=== PATIENT | female | born 1965 | race Caucasian/White ===

== ENCOUNTER 2023-07-18 05:50 | Day surgery (SDC) | payer BC ==
[2023-07-09 15:16] VITALS: BP 146/90
[2023-07-18] VITALS (8 sets, daily range): BP systolic 96–142; BP diastolic 59–94
[~2023-07-18] VITALS: Ht 172.7 cm; Wt 91.8 kg
--- NOTE | ~2023-07-18 | OR ---
[facility] [address], [place] [address] Draft DATE OF OPERATION: 07/18/2023 SURGEON: Abbi Rod MD SIENE MAKER: Gus Leal DO PREOPERATIVE DIAGNOSIS: Uterovaginal prolapse, abdominal adhesions, cystocele and rectocele, and stress urinary incontinence. PROCEDURE: Total laparoscopic hysterectomy, bilateral salpingectomy, lysis of adhesions, cystocele repair, sling procedure, cystoscopy, rectocele repair. ANESTHESIA: General ET. ESTIMATED BLOOD LOSS: 150 mL, combined. DRAINS: Kelsey catheter. INDICATIONS AND FINDINGS: The patient is a 57-year-old female who has been having ongoing issues with uterovaginal prolapse. She now desired definitive treatment. She unfortunately has also had a right colectomy, which was done open because of her perforation during colonoscopy. She has also had a midline hernia repair. She had a grade 2 cystocele and a grade 2-3 rectocele. At the time of surgery, she had adhesions across the right side of the abdomen consistent with the prior colectomy. The pelvis otherwise appeared clear. DESCRIPTION OF PROCEDURE: The patient was prepped and draped in the dorsal lithotomy position. A weighted speculum was placed. The anterior lip of the cervix was visualized and grasped with a single-tooth tenaculum. The cavity was sounded and the endocervical canal dilated and the VCare cannula inserted and the balloon inflated at the fundus. The tenaculum and speculum removed. The cup was fitted over the cervix and a locking cap was fitted into place. Attention was directed above. The infraumbilical area was injected with 0.5% Marcaine plain. An incision was made with a knife, and each layer was serially elevated PATIENT NAME: ANUM JO OPERATIVE REPORT DATE OF : 69 REPORT #: [id number] PHYSICIAN: ABBI ROD MD PCP: YANETH GUZMÁN MD REPORT IS CONFIDENTIAL AND NOT TO BE RELEASED WITHOUT AUTHORIZATION [facility] [address], [place] [address] Draft incised until the fascia was opened and identified. Stay sutures of 0 Vicryl were placed. The peritoneum was opened bluntly and the Faisal cannula was placed and the balloon inflated. Placement of the scope confirmed proper positioning. CO2 was then introduced in the abdomen. The abdomen was evaluated and the pelvis appeared clear other than the adhesions on the right anterior abdominal wall. The secondary ports were then placed. The left-sided port was a 5 mm port, the right-sided port was a Veress needle followed by the expanding port. Each of these areas was transilluminated, injected with the Marcaine, incision made with a knife and the trocars placed under direct vision. After placement of the left-sided scope, the LigaSure [place] device was used to divide the adhesions along the anterior abdominal wall of the patient's right allowing for more freedom of movement visualization. Following this, the right-sided port was placed. At this time, the patient's left tube was excised from the fimbriated end to the cornu by serially coagulated and dividing along the mesosalpinx. The patient's right utero-ovarian ligament was then serially coagulated and divided as well. The patient's right tube was then removed in the same manner by serially coagulating, dividing the mesosalpinx and dividing at the cornu. The left utero-ovarian ligament was then serially coagulated and divided as well. Following this, the left round ligament was serially coagulated, divided, and the anterior leaf of the broad ligament incised allowing for creation of a partial bladder flap. The peritoneum was taken down posteriorly as well. Uterine vessels were skeletonized and were coagulated multiple times and divided. Attention was directed to the patient's right side and the round ligament was serially coagulated and divided. The anterior leaf of the peritoneum was then dissected down and this completed the bladder flap anteriorly. The peritoneum was taken down posteriorly as well. The uterine vessels were skeletonized and coagulated multiple times and divided. Further dissection was done both posteriorly and anteriorly and the cup could then be seen and felt. Following this, the APGR Green device was used to serially divide the specimen from the vaginal cuff. The specimen was retrieved vaginally and the vaginal canal packed with a glove with a wet lap allowing the pneumoperitoneum to reaccumulate. The abdomen was then copiously irrigated, inspected and good hemostasis was noted. The vaginal cuff was closed with the Endo Stitch, taking care to incorporate the vaginal mucosa both anteriorly and posteriorly. This was begun at the patient's right uterosacral ligament and carried to the patient's left uterosacral ligament and back to the center. Following this, the instruments were removed from the abdomen after allowing as much CO2 as possible to escape. The fascial incision of the umbilicus was identified and closed with a running suture of 0 Vicryl. The stay sutures were tied across as well. The skin incisions were closed with subcuticular sutures of 3-0 Vicryl Rapide. Attention was directed down below and the vaginal pack was removed. The anterior vaginal wall was then grasped in the midline with Allis clamps and was incised from the vaginal cuff to the midurethral area. The vaginal mucosa was from the underlying tissue with a combination of blunt and sharp dissection. This was carried out pretty far laterally and behind the pubic rami superiorly at the level of the mid urethra. Following this, the remaining pubovesical PATIENT NAME: ANUM JO OPERATIVE REPORT DATE OF : 69 REPORT #: [id number] PHYSICIAN: ABBI ROD MD PCP: YANETH GUZMÁN MD REPORT IS CONFIDENTIAL AND NOT TO BE RELEASED WITHOUT AUTHORIZATION [facility] [address], [place] [address] Draft fascia was reapproximated with interrupted sutures of 2-0 Vicryl. The obturator notches were identified and incision made over these. The trocars were then inserted for the obturator sling. These were placed at the lowest most medial portion of the obturator notch and taken immediately behind the pubic bone and into the apex of the vaginal incision, taking care not to buttonhole. This was done bilaterally. At this point, cystoscopy was done with removal of the Kelsey. She had received IV fluorescein. The bladder was inspected using a 70-degree scope. There was no evidence of any incursion of the trocars on either side or any other bladder injury. Both of the ureteral orifices were identified and free spill of fluorescein stained urine was noted. The bladder was then drained and the Kelsey catheter replaced. The sling was then attached to the trocars and brought through the skin incisions on each side. The covering was removed by cutting the tab. Care was taken to keep appropriate tension in the midurethral area. The excess sling was trimmed at the skin. The excess vaginal mucosa was then trimmed significantly on each side. Bleeding points were controlled with cautery. There was some bleeding from the apices of the vagina, which could not be reached and FloSeal was placed in these areas on each side. The vaginal mucosa was then closed from the midurethral area down to the vaginal cuff with a running suture of 2-0 Vicryl. The posterior repair was then begun. A triangle of tissue was removed from the perineal body and the vaginal mucosa was then undermined, incised in the midline to the apex of the vagina. The vaginal mucosa was from the underlying tissue with a combination of blunt and sharp dissection. The muscles were reapproximated with interrupted sutures of 0 Vicryl. This reduced the rectocele significantly. A rectal examination was then done, which confirmed good reduction of the defect and no evidence of any sutures compromising the rectal lumen. The vaginal mucosa was then trimmed and the incision was closed from the apex of the vagina to the hymenal ring with a running suture of 2-0 Vicryl. The perineal body was rebuilt with interrupted sutures of 0 Vicryl. The posterior fourchette was recreated with a running suture of 2-0 Vicryl. The skin of the perineum was closed with a subcuticular suture of 3-0 Vicryl. The skin incisions for the sling were closed with interrupted sutures of 3-0 Vicryl. Inspection of the vaginal vault showed good length and caliber. There was no evidence of any ongoing bleeding. The vaginal canal was then packed with estrogen coated gauze using the entire lengths provided. All sponge and needle counts were correct. She tolerated the procedure well, taken to the recovery room in good condition. MD OPAL Earl/DAINA /[id number] PATIENT NAME: ANUM JO OPERATIVE REPORT DATE OF : 69 REPORT #: [id number] PHYSICIAN: ABBI ROD MD PCP: YANETH GUZMÁN MD REPORT IS CONFIDENTIAL AND NOT TO BE RELEASED WITHOUT AUTHORIZATION [facility] [address] [place] [address] Draft Copies: ~ PATIENT NAME: ANUM JO OPERATIVE REPORT DATE OF : 69 REPORT #: [id number] PHYSICIAN: ABBI ROD MD PCP: YANETH GUZMÁN MD REPORT IS CONFIDENTIAL AND NOT TO BE RELEASED WITHOUT AUTHORIZATION
[~2023-07-18 05:50] MED LIST: FLONASE ALLERG9.9 ML NAS; LACTATED RINGER'S 1,000 ML IV SCH; METOPROLOL SUCC25 MG PO; PANTOPRAZOLE SO20 MG PO; ZYRTEC10 MG PO
[2023-07-18] MEDS ORDERED: DEXAMETHASONE SOD PHOS 4 MG/ML VIAL ONE (06:57)
[2023-07-18] MEDS ORDERED: MAGNESIUM SULFATE 1 GM/2 ML VIAL ONE (06:57)
[2023-07-18] MEDS ORDERED: ROCURONIUM BROMIDE 50 MG/5 ML SYR ONE (06:57)
[2023-07-18] MEDS ORDERED: propofoL 200 MG/20 ML VIAL ONE (06:57)
[2023-07-18] MEDS ORDERED: KETOROLAC TROMETHAMINE 30 MG/ML VIAL ONE (06:57)
[2023-07-18] MEDS ORDERED: KETAMINE in NS 50 MG/5 ML SYR ONE (06:57)
[2023-07-18] MEDS ORDERED: ACETAMINOPHEN 1,000 MG/100 ML VIAL ONE (06:57)
[2023-07-18] MEDS ORDERED: ondansetron HCL 4 MG/2 ML VIAL ONE (06:57)
[2023-07-18] MEDS ORDERED: dexmedeTOMIDine HCl 200 MCG/2 ML VIAL ONE (06:57)
[2023-07-18] MEDS ORDERED: MIDAZOLAM HCL 2 MG/2 ML VIAL ONE (06:57)
[2023-07-18] MEDS ORDERED: HEParin SOD (PORCINE) 5,000 UNIT/0.5 ML SYR SUB-Q SCH ×2 (07:00→21:00)
[2023-07-18] MEDS ORDERED: METOCLOPRAMIDE HCL 10 MG/2 ML SDV IV SCH (07:00)
[2023-07-18] MEDS ORDERED: FAMOTIDINE 20 MG/ 2 ML VIAL IV SCH (07:00)
[2023-07-18] MEDS ORDERED: CEFAZOLIN SODIUM 2 GM/20 ML SYR IV SCH (07:00)
[2023-07-18] MEDS ORDERED: IBLOOD GLUCOSE TEST STRIP 1 EA TEST VI PRN ×2 (07:00→11:15)
[2023-07-18] MEDS ORDERED: LIDOCAINE HCL 1% 5 ML SDV INJ ONE (07:00)
[2023-07-18] MEDS ORDERED: LIDOCAINE HCL 1% 30 ML SDV ONE (07:05)
[2023-07-18] MEDS ORDERED: SUGAMMADEX SODIUM 200 MG/2 ML ML ONE (07:37)
[2023-07-18] MEDS ORDERED: FLUORESCEIN SODIUM 500 MG/5 ML ML ONE (07:37)
[2023-07-18] MEDS ORDERED: ePHEDrine sulfate 50 MG/ML AMP ONE (08:07)
[2023-07-18] MEDS ORDERED: SODIUM CHLORIDE 0.9% 20 ML IV ONE (08:08)
[2023-07-18] MEDS ORDERED: LACTATED RINGER'S 1,000 ML IV ONE ×2 (08:12→09:49)
[2023-07-18] MEDS ORDERED: LIDOCAINE HCL 2% 5 ML SDV ONE (09:14)
[2023-07-18] MEDS ORDERED: estradioL 0.01% 42.5 GM TUBE ONE (09:54)
[2023-07-18] MEDS ORDERED: BACITRACIN 0.9 GM 1 PKT PKT ONE (10:42)
[2023-07-18] MEDS ORDERED: MORPHINE SULFATE 10 MG/ML VIAL IV PRN (11:00)
[2023-07-18] MEDS ORDERED: ondansetron HCL 4 MG TAB PO PRN (11:00)
[2023-07-18] MEDS ORDERED: SIMETHICONE 125 MG TABLET CHEWABLE PO PRN (11:00)
[2023-07-18] MEDS ORDERED: METOCLOPRAMIDE HCL 10 MG/2 ML SDV IV PRN (11:00)
[2023-07-18] MEDS ORDERED: OXYCODONE HCL 5 MG TAB PO PRN (11:00)
[2023-07-18] MEDS ORDERED: LACTATED RINGER'S 1,000 ML IV SCH (11:00)
[2023-07-18] MEDS ORDERED: MAGNESIUM HYDROXIDE/AL HYDROX 30 ML CUP PO PRN (11:00)
[2023-07-18] MEDS ORDERED: ondansetron HCL 4 MG/2 ML VIAL IV PRN ×2 (11:00→11:15)
[2023-07-18] MEDS ORDERED: LIDOCAINE 2% VISCOUS 6 ML SYR TOP ONE (11:00)
[2023-07-18] MEDS ORDERED: NALOXONE HCL 0.4 MG SYR IV PRN ×2 (11:00→11:15)
[2023-07-18] MEDS ORDERED: PROCHLORPERAZINE EDISYLATE 10 MG/2 ML VIAL IV PRN (11:00)
[2023-07-18] MEDS ORDERED: FAMOTIDINE 20 MG TAB PO PRN (11:00)
[2023-07-18] MEDS ORDERED: droPERidol 5 MG/2 ML VIAL IV PRN (11:15)
[2023-07-18] MEDS ORDERED: HYDROmorphone HCL 1 MG/ML SYR IV PRN (11:15)
--- NOTE | 2023-07-18 11:27 | NUR ---
07/18/23 1127 Lola Avina 1050 PT ARRIVED IN PACU NON RESPONSIVE TO NOXIOUS STIMULI. CHIN LIFT HELD BY RN. 1105 PT REACTIVE AND MOVING ALL OVER IN BED. C/O VAGINAL PAIN "BURING." 1108 DILAUDID 0.5MG GIVEN IV. 1115 C/O URGE TO VOID. EXPLAINED CATHETER IS IN PLACE AND DRAINING BRIGHT YELLOW URINE. 1120 PAIN DOWN TO 6/10 IN VAGINA. DIALUDID 0.5MG GIVEN IVP. 1125 TAKING SIPS OF WATER. WARM PACK PLACE ON ABD FOR COMFORT.
[2023-07-18] MEDS ORDERED: fentaNYL citrate 50 MCG/ML SDV ONE ×2 (11:54→12:12)
[2023-07-18] MEDS ORDERED: fentaNYL citrate 100 MCG/2 ML VIAL IV PRN (12:00)
--- NOTE | 2023-07-18 12:58 | NUR ---
LE 1225 PATIENT DROWSY BUT ORIENTED. PATIENT BREATHING EQUAL AND UNLABORED. OXYGEN SATURATIONS ABOVE 90% ON ROOM AIR. PATIENT STATES PAIN IS A 5/10. PATIENT DENIES BEING NAUSEATED. PATIENT LAP SITES CLEAN, DRY AND INTACT. HEAT PACK APPLIED ABOVE. CHERYL PAD HAS SMALL AMOUNT OF RED DRAINAGE. PACKING VISABLE. IVF INFUSING. SCD'S ON. AT BEDSIDE. CALL LIGHT WITHIN REACH. NO FUTHER NEEDS. NO QUESITONS AT THIS TIME.
--- NOTE | 2023-07-18 13:50 | NUR ---
LE 1245 DR. SANCHEZ GIVEN UPDATE ON PATIENT. LE 1300 PATIENT WANTING TO USE THE RESTROOM. PATIENT AMBULATED TO THE RESTROOM PATIENT PACKING HAD FALLEN OUT. PATIENT UNABLE TO VOID. PATIENT BACK TO THE BED. LE 1310 DR. SANCHEZ OFFICE NOTIFIED ABOUT PACKING FALLING OUT. LE 1325 PATIENT ALERT AND ORIENTED. BREATHING EQUAL AND UNLABORED. OXYGEN SATURATIONS ABOVE 90% ON ROOM AIR. PATIENT STATES PAIN IS AT A 3/10 AND BETTER. PATIENT DENIES BEING NAUSEATED. PATIENT LAP SITES CLEAN, DRY AND INTACT. CHERYL PAD HAS SMALL TO MODERATE AMOUNT OF RED DRAINAGE. IVF INFUSING. SCD'S ON. PATIENT DRINKING WATER AND EATING JELLO. CALL LIGHT WITHIN REACH. NO FUTHER NEEDS. NO QUESITONS AT THIS TIME.
--- NOTE | 2023-07-18 14:31 | NUR ---
LE 1400 PATIENT BACK UP TO THE RESTROOM. PATIENT UNABLE TO VOID. PATIENT GIVEN WATER. PATIENT STATES PAIN IS STILL AT 3/10 BUT TOLERABLE. OFFERED PATIENT FOOD. DENIES WANTING ANY AT THIS TIME.
--- NOTE | 2023-07-18 14:43 | NUR ---
LE 1430 PATIENT STATE PAIN IS A 7/10. PATIENT GIVEN PRN PAIN MEDICINE. PATIENT ALERT AND ORIENTED. BREATHING EQUAL AND UNLABORED. OXYGEN SATURATIONS ABOVE 90% ON ROOM AIR. PATIENT HAS HEAT PACK ON THE LAP SITES. CLEAN DRY AND INTACT. CHERYL PAD HAS SMALL AMOUNT OF RED DRAINAGE. IVF INFUSING. SCD'S ON. AT BEDSIDE. CALL LIGHT WITHIN REACH. NO FUTHER NEEDS. NO QUESITONS.
--- NOTE | 2023-07-18 14:56 | NUR ---
LE 1455 PATIENT GIVEN PRN ZOFRAN. PATIENT STATES BEING NAUSEATED. WARM BLANKET GIVEN. CALL LIGHT WITHIN REACH. NO FUTHER NEEDS. NO QUESTIONS AT THIS TIME.
[2023-07-18] MEDS ORDERED: ACETAMINOPHEN 500 MG TAB PO SCH (15:00)
[2023-07-18] MEDS ORDERED: MECLIZINE HCL 12.5 MG TAB PO PRN (17:15)
--- NOTE | 2023-07-18 17:28 | NUR ---
LE [address] DR[address] SANCHEZ NOTIFIED ABOUT PATIENT. PATIENT WILL BE STAYING MED SURG 114. AGUILAR CATH PLACED. PATIENT STATES PAIN IS TOLERABLE AT THIS TIME. DENIES BEING NAUSEATED. LE 1645 DR. SANCHEZ IN ROOM LE 1715 PATIENT WAS TAKEN TO THE MEDICAL SURGICAL FLOOR. REPORT GIVEN TO HARLEY ARREGUIN. NO QUESITONS FROM PATIENT OR NURSE AT THIS TIME. CALL LIGHT WITHIN REACH. NO FUTHER NEEDS.
[2023-07-18] MEDS ORDERED: IBUPROFEN 800 MG TAB PO SCH (19:00)
--- NOTE | 2023-07-18 19:31 | NUR ---
PT ARRIVES TO [facility] FLOOR, RECEIVED REPORT FROM HARLEY DIAZ. PT STATES PAIN IS 3/10, DENIES NEED FOR PAIN MEDICATION. PT STATES SHE HAS BEEN HAVING INTERMITTENT NAUSEA, GIVEN ALCOHOL SWAB AND EMESIS BAG. PT HAS HEAT PACK ON ABDOMEN AND ICE PACKS IN CHERYL AREA. X3 LAP SITES ON ABDOMEN, BANDAIDS C/D/I. HYPOACTIVE BOWEL TONES, TENDER TO PALPATION. PAD IN CHERYL AREA WITH MESH UNDERWEAR, SCANT AMOUNT OF RED BLOOD ON PAD. PT STATES NO NEEDS AT THIS TIME, CALL LIGHT WITHIN REACH, AT THE BEDSIDE.
--- NOTE | 2023-07-18 20:10 | NUR ---
REPORT RECEIVED FROM HARLEY COOPER. pt REPORTS NAUSEA AND 7-8/10 PAIN IN CHERYL AREA AND AT LAP SITES. PRN PAIN AND NAUSEA MEDICATIONS ADMINISTERED. NEW ICE PACK IN PLACE. pt PROVIDED WITH FRESH WATER AND SALTINE CRACKERS. IN ROOM, COUCH MADE UP FOR HIM TO STAY. CALL LIGHT IN REACH.
[2023-07-18] MEDS ORDERED: SENNOSIDES/DOCUSATE 1 EA TAB PO SCH (21:00)
[2023-07-18] MEDS ORDERED: MINERAL OIL/CHONDRUS 30 ML BTL PO SCH (21:00)
--- NOTE | 2023-07-18 22:15 | NUR ---
pt SLEEPING, AWAKENS TO VOICE/TOUCH. pt RATES PAIN 2/10. PO MEDICATIONS ADMINISTERED. pt EATING BANNANA MUFFIN, TOLERATED SALTINE CRACKERS. ASSESSMENT COMPLETE. LAP SITES CDI X3, CHERYL PAD CHANGED, SMALL AMT RED DRAINAGE. CHERYL CARE/AGUILAR CARE COMPLETE BY RN. NEW ICE PACK IN PLACE IN CHERYL AREA. CALL LIGHT IN REACH. SLEEPING IN ROOM. CPOX SET UP FOR OVERNIGHT MONITORING.
--- NOTE | 2023-07-19 00:46 | NUR ---
CHECKED ON pt. RESTING IN BED WITH EYES CLOSED, BREATHING UNLABORED, SPO2 95% ON RA. NO DISTRESS NOTED.
[2023-07-19] MEDS ORDERED: ACETAMINOPHEN 500 MG TAB PO PRN (02:00)
[2023-07-19] MEDS ORDERED: ACETAMINOPHEN 500 MG TAB PO SCH (02:00)
[2023-07-19 02:36] VITALS: BP 108/58
--- NOTE | 2023-07-19 02:40 | NUR ---
pt AWAKE WHEN RN ENTERS ROOM. VSS. pt RATES PAIN 2/10 "BURNING" IN CHERYL AREA. SCHEDULED TYLENOL AND MOTRIN ADMINISTERED. SMALL AMT RED DRAINAGE ON CHERYL PAD. AGUILAR EMPTIED. LAP SITES X 3, CDI. ICE WATER REFILLED. CALL LIGHT IN REACH.
--- NOTE | 2023-07-19 03:20 | NUR ---
CPOX ALARMING. pt ROLLING OVER IN BED, POOR WAVEFORM. SPO2 WNL ON RA. pt DENIES NEEDS. CALL LIGHT IN REACH.
--- NOTE | 2023-07-19 04:46 | NUR ---
CHECKED ON pt. pt RESTING IN BED WITH EYES CLOSED. LYING ON LEFT SIDE. SPO2 95% ON RA, HR 73. CPOX ON. NO DISTRESS NOTED.
[2023-07-19 06:05] VITALS: BP 100/56
--- NOTE | 2023-07-19 06:28 | NUR ---
pt AWAKE RESTING IN BED. COMPLAINS OF "CRAMPING" IN ABDOMEN. PRN PAIN MEDICATION ADMINISTERED. SMALL AMT RED DRAINAGE ON CHERYL PAD. JEFF OLMEDO'Alie WNL. COFFEE, ICE WATER PROVIDED. VSS. CPOX OFF. pt REQUESTS BREAK FROM SCDS. BREAKFAST MENU PROVIDED AND pt ON PHONE ORDERING WITH DIETARY.
--- NOTE | 2023-07-19 07:16 | NUR ---
RECEIVED REPORT FROM HARLEY BARRETT WITH HARLEY INMAN. PT AWAKE RESTING IN BED. AT BEDSIDE. PT STATES SHE HAD VOIDED IN THE TOILET BUT HAD NO HAT. PT POST-VOID SCAN SHOWED 103ML, NOTED ON CHART. PT REQUESTING PRN PAIN MEDICATION, ARNOLD SOUZA PROVIDES. HAT PLACED IN PT TOILET FOR FUTURE VOIDS. ICE PACK NOTED TO ABDOMEN. CALL LIGHT IN REACH, NO OTHER NEEDS NOTED AT THIS TIME.
--- NOTE | 2023-07-19 07:20 | NUR ---
REPORT RECEIVED FROM HARLEY RODRIGUEZ. PT SITTING UP IN BED AND RESPONDS WHEN ADDRESSED. AT BEDSIDT. PT REPORTS VOIDING. NOTED NO HAT IN TOILET. THIS RN AND SN HEMA BLADDER SCAN OF 103ML NOTED. PT REPORTING PAIN. HARLEY BERGMAN ADMINISTERES PRN PAIN MEDICATION. PT DENIES ANY OTHER NEEDS AT THIS TIME. CALL LIGHT IN REACH.
--- NOTE | 2023-07-19 07:45 | NUR ---
IN WITH DR. SANCHEZ TO ROUND ON PT. PT IN BED, AT BEDSIDE. PT ASKS QUESTIONS APPROPRIATELY, APPEARS IN GOOD SPIRITS. PT REQUESTS FRESH ICE WATER, PROVIDED. CALL LIGHT IN REACH, NO OTHER NEEDS NOTED.
--- NOTE | 2023-07-19 07:49 | NUR ---
CARE MANAGEMENT SPECIALIST ENTERED ROOM FOR HOURLY ROUNDING. PT STATES NO COMPLAINTS. CARE MANAGEMENT SPECIALIST OFFERED PT A WARM WASHCLOTH TO WIPE HER FACE PT REFUSED AND SAID SHE BROUGHT WIPES FROM HOME. PT STATES NO FUTHER COMPLAINTS OR CONCERNS, CALL LIGHT IS WIHTIN REACH
[2023-07-19] MEDS ORDERED: PROTONIX40 MG PO (08:22)
--- NOTE | 2023-07-19 08:26 | NUR ---
PT VOIDED 250. BARREL BRANDER TRIED TO BLADDER SCAN PT BUT SCANNER WAS UNABLE TO DETECT ANY RESIDUAL URINE. LEGAL SUPPORT MANAGER NOTIFIED.
[2023-07-19] MEDS ORDERED: IBU800 MG PO (08:32)
[2023-07-19] MEDS ORDERED: TYLENOL EXTRA500 MG PO (08:33)
[2023-07-19] MEDS ORDERED: ONDANSETRON ODT8 MG PO (08:34)
[2023-07-19] MEDS ORDERED: SENOKOT-S TABL1 EACH PO (08:35)
[2023-07-19] MEDS ORDERED: OXYCODONE HCL5 MG PO (08:36)
--- NOTE | 2023-07-19 08:38 | NUR ---
MED REC COMPLETE
--- NOTE | 2023-07-19 09:26 | NUR ---
IN WITH SN HEMA TO ADMINISTER MEDICATIONS. PT RESPONDS WHEN ADDRESSED AND TAKES PO MEDICATIONS WITH NO ISSUES. PT REPORTING PAIN 5/10 AND STATES "CRAMPING TO ABD AND BURNING TO CHERYL-AREA." SCHEDULED TYLENOL ADMINISTERED, SEE MAR. ASSESSMENT COMPLETE. LUNG SOUNDS CLEAR. BOWEL TONES ACTIVE. ABD TENDER WITH PLAPATION. PEDAL PULSES PALPABLE. IV FLUSHES WNL. PT REQUESTING TO AMBULATE. PT AMBULATES LOYA WITH SN HEMA AND . NO OTHER NEEDS FROM THIS RN AT THIS TIME.
[2023-07-19 09:43] VITALS: BP 116/69
--- NOTE | 2023-07-19 09:44 | NUR ---
PT BACK IN ROOM. PT VOIDS IN HAT. POST VOID BLADDER SCAN FOR 91ML NOTED. NEW CHERYL-PAD PLACED. SCANT AMOUNT OF BLOODY DRAINAGE NOTED TO OLD CHERYL-PAD. LINENS ON BED CHANGED. ICE PACK PROVIDED. PT DENIES ANY OTHER NEEDS AT THIS TIME. CALL LIGHT IN REACH. AT BEDSIDE.
--- NOTE | 2023-07-19 10:46 | NUR ---
ATTEMPTED TO VISIT DURING SPIRITUAL CARE ROUNDS. PT RECEIVING NURSING CARE. DID NOT INTERRUPT. PROVIDED PRAYER.
--- NOTE | 2023-07-19 11:00 | NUR ---
Spoke with pt. She plans on dc to home today. She has been able to void. Dr. Rod will be back to dc in soon, per pt. Pt lives with her spouse in [place]. She denies any needs, she drives and works. does not use any DME. He bedroom is on the second floor and she feel she will be fine walking up the stairs. Spouse will be staying home with her until next week.
--- NOTE | 2023-07-19 11:33 | NUR ---
IN TO ADMINISTER MEDICATION. PT SITTING UP IN BED REPORTING FEELING NAUSEATED. PT STATES "I THREW UP A LITTLE, IT JUST CAME UP IN MY THROAT AND THEN WENT BACK DOWN." PRN ZOFRAN ADMINISTERED, SEE MAR. PT REPORTING PAIN 4/10 TO CHERYL-AREA AND STATES "BURNING." ICE PACK IN PLACE OF CHERYL-AREA. PT AMBULATES TO RESTOOM. 100ML VOID NOTED. BLADDER SCAN OF 165ML NOTED. PT REQUESTING TO WAIT A LITTLE BIT BEFORE ADMINISTERING MOTRIN DUE TO NAUSEA. PT DENIES ANY OTHER NEEDS AT THIS TIME. CALL LIGHT IN REACH.
--- NOTE | 2023-07-19 12:18 | NUR ---
IN TO ROUND ON PT. PT SITTING UP IN BED. PT REPRTING PAIN 06/19. MOTRIN ADMINISTERED, SEE MAR. PT TAKES PO MEDICTION WITH NO ISSUES. PT DENIES ANY OTHER NEEDS AT THIS TIME. CALL LIGHT IN REACH.
--- NOTE | 2023-07-19 12:30 | NUR ---
IN TO ANSWER CALL LIGHT. PT NOTED TO BE AMBULATING IN ROOM AND REPORTING VOIDING. PT ALSO REPORTING NO NAUSEA AND STATES "I BURPED AND FEEL MUCH BETTER." BLADDER SCAN OF 136ML NOTED POST VOID. PT REQUESTING TO AMBULATE LOYA WITH . PT HAS STEADY GAIT AND AMBULATES LOYA X1 LAP WITH . PT DENIES ANY OTHER NEEDS FROM THIS RN AT THIS TIME. TRAY REMOVED PER PT REQUEST.
[2023-07-19 13:04] VITALS: BP 116/69
--- NOTE | 2023-07-19 13:26 | NUR ---
IN WITH SN HEMA TO REMOVE IV. IV REMOVED WNL, SEE VASCULAR ACCESS. PT REQUESTING TO GET DRESSED. PT DENIES ASSISTANCE FROM THIS RN. PT DENIES ANY OTHER NEEDS AT THIS TIME. CALL LIGHT IN REACH. IN ROOM.
[2023-07-19] MEDS ORDERED: REGLAN10 MG PO (14:11)
[2023-07-19] MEDS ORDERED: MINERAL OIL473 ML PO (14:13)
[2023-07-19 14:29] VITALS: BP 125/64
--- NOTE | 2023-07-19 14:29 | NUR ---
IN WITH SN HEMA AND CHARLOTTE BALLARD. CHARLOTTE BALLARD OBTAINING VITALS. VITALS AND I&Os COMPLETE. VERBAL AND WRITTEN DC INSTRUCTIONS PROVIDED. QUESTIONS ANSWERED. FOLLOW-UP APPOINTMENT PROVIDED. PT WHEELED OUT BY CHARLOTTE BALLARD. PT AND PTs HINA DENY ANY NEEDS FROM THIS RN. NO CONCERNS/COMPLAINTS.
[2023-07-21] MEDS ORDERED: SCOPOLAMINE 1 MG/3 DAYS PATCH 1 EACH TDSY TD SCH (09:00)
--- NOTE | 2023-07-23 18:24 | PATH ---
[facility] [address], [place] [address] Signed SPECIMEN(S): A UTERUS, CERVIX, BILATERAL TUBES SPECIMEN SOURCE: A. UTERUS, CERVIX, BILATERAL TUBES CLINICAL HISTORY: Incomplete uterovaginal prolapse; LUCHO; cystocele; rectocele FINAL PATHOLOGIC DIAGNOSIS: Uterus, cervix, and bilateral fallopian tubes: - Uterus and cervix: - Cervix: Benign with atrophic features and mild chronic cervicitis. No dysplasia identified. - Endometrium: Benign atrophic postmenopausal endometrium. - Myometrium: Multiple benign leiomyomas. - Benign, no atypia identified. - Segments of right and left fallopian tubes - Benign fallopian tube tissue, completely transected. - No atypia or malignancy identified. [facility] MICROSCOPIC EXAMINATION: Histologic sections of all submitted blocks are examined by light microscopy. These findings, together with the gross examination, support the pathologic diagnosis. GROSS DESCRIPTION: The specimen, labeled and designated "Gonzalo, S, " and designated on the requisition "bilateral fallopian tubes and cervix plus uterus," is received in formalin and consists of 92 gram uterus and cervix with fallopian tubes. The uterus is 3.7 x 5.1 x 7.4 cm (cornu-cornu x anterior-posterior x fundus-ectocervix). The serosal surface is pink-red and smooth with focal areas of red discoloration and white adherent membranous tissue. The ectocervical mucosa is pale pink and smooth. Serial sectioning of the cervix fails to demonstrate any gross abnormalities. The triangular endometrial cavity is lined by a pink smooth and focally congested endometrium that has an average thickness of 0.2 cm. Sectioning through the uterus reveals a pink moderately trabeculated myometrium with multiple white-claros well-circumscribed intramural nodules that measure up to 2.1 cm in greatest dimension. These nodules have a white whorled cut PATIENT NAME: ANUM JO PATHOLOGY DATE OF : 69 REPORT #: [id number] PHYSICIAN: OTONIEL PATHOLOGY PCP: YANETH GUZMÁN MD REPORT IS CONFIDENTIAL AND NOT TO BE RELEASED WITHOUT AUTHORIZATION [facility] [address], [place] [address] Signed surface. The first fallopian tube is 4.6 x 1.0 cm, with delicate fimbriae. The serosa is violaceous and smooth. Cut sections reveal a pinpoint lumen. The second fallopian tube is 4.7 x 0.9 cm, with delicate fimbriae. The serosa is violaceous and smooth. Cut sections reveal a pinpoint lumen. Senior Electronics Engineer sections are submitted in six cassettes. Cassette Summary: (A1) cervix (A2-A3) uterine wall (A4) intramural nodules (A5) first fallopian tube (A6) second fallopian tube FB (under the direct supervision of a pathologist) The Gross Description was prepared using a voice recognition system. The report was reviewed for accuracy; however, sound-alike word errors, addition and/or deletions may occur. If there is any question about this report, please contact Client Services. ADDITIONAL NOTES: Immunohistochemical and/or in situ hybridization studies if performed in this case included appropriate positive controls that reacted as expected. This test was developed and its performance characteristics determined by [facility]. It has not been cleared or approved by the U.S. Food and Drug Administration. The FDA has determined that such clearance or approval is not necessary. This test is used for clinical purposes. It should not be regarded as investigational or for research. [facility] is certified under the Clinical Laboratory Improvement Amendments of 1988 (CLIA) as qualified to perform high complexity clinical laboratory testing. PERFORMING LABORATORY: Technical component was performed by [facility], [address] [place] [id number] (CLIA# [id number]). Professional interpretation was performed by [facility], [address] [place] [id number] (CLIA#: [id number]). Diagnostician: Oscar Adames MD Pathologist Electronically Signed 07/23/2023 PATIENT NAME: ANUM JO PATHOLOGY DATE OF : 69 REPORT #: [id number] PHYSICIAN: OTONIEL PATHOLOGY PCP: YANETH GUZMÁN MD REPORT IS CONFIDENTIAL AND NOT TO BE RELEASED WITHOUT AUTHORIZATION [facility] [address] [place] [address] [place] [address] Signed Copies: ~ PATIENT NAME: ANUM JO PATHOLOGY DATE OF : 69 REPORT #: [id number] PHYSICIAN: OTONIEL PABLO PCP: YANETH GUZMÁN MD REPORT IS CONFIDENTIAL AND NOT TO BE RELEASED WITHOUT AUTHORIZATION
== END 2023-07-19 14:38 | disposition home or self-care (01) ==
LOC: DS 05:50 → OPS 05:50 → DS 07:30 → OPS 07:30 → MS 17:02 → OPS 07-19 14:38
PROVIDERS: ATTEND Obstetrics & Gynecology
PROC: 0UT94ZZ Resection of Uterus, Percutaneous Endoscopic Approach (ICD-10-PCS; principal; 2023-07-18 07:30)
PROC: 0JQC0ZZ Repair Pelvic Region Subcutaneous Tissue and Fascia, Open Approach (ICD-10-PCS; 2023-07-18 07:30)
PROC: 0JQC0ZZ Repair Pelvic Region Subcutaneous Tissue and Fascia, Open Approach (ICD-10-PCS; 2023-07-18 07:30)
DX: N81.4 Uterovaginal prolapse, unspecified (principal); N81.2 Incomplete uterovaginal prolapse; N39.3 Stress incontinence (female) (male); N72 Inflammatory disease of cervix uteri; N95.8 Other specified menopausal and perimenopausal disorders; D25.9 Leiomyoma of uterus, unspecified
CPT/HCPCS: 00840; 51798; 94762; A9270; C1771; J0131; J0690; J0780; J1100; J1644; J1885; J2001; J2250; J2270; J2405; J2704; J2765; J3010; J3475; J3490; J7121